=== PATIENT | male | born 1950 ===

== ENCOUNTER 2018-06-07 13:05 | Day surgery (SDC) | payer MEDICARE, OTHER ==
[2018-06-06 09:54] VITALS: BMI 26.9
[2018-06-07 13:46] LABS: BASO # 0.05 K/mm3 (0.0-2.0); BASO % 0.6 % (0.0-3.0); EOS # 0.5 (0.0-0.7); EOS % 5.2 % (1.5-5.0); GRAN # 5.83 (1.4-6.5); GRAN % 65.8 % (50.0-68.0); HEMOGLOBIN 14.8 g/dL (14.0-18.0); LYMPH # 1.6 (1.2-3.4); LYMPH % 17.9 % (22.0-35.0); MEAN CELL VOLUME 81.5 fl (80.0-105.0); MEAN CORPUSCULAR HEMOGLOBIN 28.2 pg (25.0-35.0); MEAN CORPUSCULAR HGB CONC 34.6 g/dl (31.0-37.0); MEAN PLATELET VOLUME 9.5 fl (7.0-11.0); MONO # 0.9 (0.1-0.6); MONO % 10.5 % (1.0-6.0); RBC 5.25 10^6/uL (3.5-6.1); WHITE BLOOD COUNT 8.9 10^3/ul (4.5-11.0)
[2018-06-07 13:52] LABS: BLOOD UREA NITROGEN 13 mg/dL (7-21); CALCIUM 9.9 mg/dL (8.4-10.5); GFR NON-AFRICAN AMERICAN > 60
[2018-06-07 13:56] LABS: INR 0.97; PARTIAL THROMBOPLASTIN TIME 28.7 Seconds (25.1-36.5)
[2018-06-07 14:33] VITALS: RESP 18
[2018-06-07] MEDS ORDERED: Midazolam 2 MG/2 ML VIAL ONE (15:36)
[2018-06-07] MEDS ORDERED: Lidocaine Hydrochloride 1% 10 ML ONE (15:37)
[2018-06-07] MEDS ORDERED: Oxycodone/Acetaminophen 5/325 mg Tab PO PRN (16:52)
[2018-06-07 17:00] VITALS: O2SAT 99
[2018-06-07] MEDS ORDERED: Sodium Chloride 0.45% 1,000 ML IV SCH (17:00)
[2018-06-07] MEDS ORDERED: Midazolam 2 MG/2 ML VIAL IVP ONE (17:04)
[2018-06-07 18:32] VITALS: BP 120/65; PULSE 62; TEMP 98
--- NOTE | 2018-06-07 20:48 | CT ---
PROCEDURE: CT-guided gastrostomy tube placement. HISTORY: Head neck carcinoma. Needs gastrostomy tube. Unable place endoscopic gastrostomy tube. PHYSICIAN(S): Aashish Leslie MD. TECHNIQUE: The relative risks and indications for the procedure were explained to the patient and informed consent obtained. In a sitting position, an oral gastric tube was placed and the stomach insufflated with air. The patient was placed in a supine position on the CT scanner and preliminary images through the upper abdomen performed. This revealed a distended stomach and a subxiphoid approach. Conscious sedation monitoring were provided throughout the procedure by a nurse. Under ultrasound guidance the stomach was punctured with an 18 gauge needle. A 0 point 035 guidewire was placed. Sequential dilatation was performed with subsequent placement of 14 Tong[place] pigtail gastrostomy tube. The catheter was flushed and secured. The patient tolerated the procedure well. IMPRESSION: 1. CT-guided gastrostomy tube placement as described above. 2. The tube should be changed and upsized in 4-6 weeks.
== END 2018-06-07 18:30 | disposition home or self-care (01) ==
LOC: SDSVAS 13:05
PROVIDERS: ATTEND Radiology Vascular & Interventional Radiology
DX: Z46.59 Encounter for fitting and adjustment of other gastrointestinal appliance and device (principal); C76.0 Malignant neoplasm of head, face and neck
CPT/HCPCS: 36415; 49440; 75989; 80048; 85025; 85610; 85730; 99152; 99153; J2250; J2405; J3010; J7030

== ENCOUNTER 2018-07-09 09:15 | Day surgery (SDC) | payer MEDICARE, OTHER ==
[2018-07-09 10:13] LABS: BASO # 0.03 K/mm3 (0.0-2.0); BASO % 0.5 % (0.0-3.0); EOS # 0.1 (0.0-0.7); EOS % 1.6 % (1.5-5.0); GRAN # 4.99 (1.4-6.5); GRAN % 80.7 % (50.0-68.0); HEMOGLOBIN 14.1 g/dL (14.0-18.0); LYMPH # 0.7 (1.2-3.4); LYMPH % 10.7 % (22.0-35.0); MEAN CELL VOLUME 82.7 fl (80.0-105.0); MEAN CORPUSCULAR HEMOGLOBIN 27.7 pg (25.0-35.0); MEAN CORPUSCULAR HGB CONC 33.5 g/dl (31.0-37.0); MEAN PLATELET VOLUME 9.3 fl (7.0-11.0); MONO # 0.4 (0.1-0.6); MONO % 6.5 % (1.0-6.0); RBC 5.09 10^6/uL (3.5-6.1); WHITE BLOOD COUNT 6.2 10^3/ul (4.5-11.0)
[2018-07-09 10:25] LABS: BLOOD UREA NITROGEN 21 mg/dL (7-21); GFR NON-AFRICAN AMERICAN > 60
[2018-07-09 10:27] LABS: INR 1.03; PARTIAL THROMBOPLASTIN TIME 31.5 Seconds (25.1-36.5); PROTHROMBIN TIME 11.8 SECONDS (9.4-12.5)
[2018-07-09 11:48] VITALS: BMI 26.3
[2018-07-09] MEDS ORDERED: Iodixanol 320 MG/ML 100 ML BOTTLE IV ONE (12:14)
[2018-07-09] MEDS ORDERED: Lidocaine PF 2% (5 ml) Inj (For Cardiac Arrhy) ONE (12:14)
[2018-07-09] MEDS ORDERED: Oxycodone/Acetaminophen 5/325 mg Tab PO PRN (12:56)
[2018-07-09] MEDS ORDERED: Sodium Chloride 0.45% 1,000 ML IV SCH (13:00)
[2018-07-09 14:10] VITALS: BP 94/44; PULSE 54; RESP 18; TEMP 98.2; O2SAT 98
--- NOTE | 2018-07-09 17:08 | VASCULAR ---
PROCEDURE: 1. Fluoroscopic gastrostomy tube change HISTORY: Nasopharyngeal carcinoma. Radiation therapy with a soft diet is. Needs G-tube changed PHYSICIAN(S): Aashish Leslie MD. TECHNIQUE: The relative risks and indications of the procedure were explained the patient consent obtained. The patient placed supine on the arteriogram table and the gastrostomy tube prepped and draped usual sterile fashion. Conscious sedation monitoring were provided throughout the procedure by a nurse 1 percent xylocaine was used to anesthetize the skin soft tissues around the tube. Contrast was injected which opacified the stomach. 0.035 Amplatz wire was placed in the stomach. The old tube was removed. A tapered 24 Swiss peel-away sheath was placed. Through the sheath and over a guidewire a new 18 Swiss feeding tube was placed in the stomach. The balloon was inflated with 8 cc dilute contrast and retracted against the anterior abdominal wall. Position was confirmed with injection of contrast. The patient tolerated the procedure well. FINDINGS: IMPRESSION: 1.Fluoroscopic percutaneous gastrostomy tube change. A new 18 Swiss feeding tube was placed
== END 2018-07-09 16:00 | disposition home or self-care (01) ==
LOC: OR 09:15 → SDSVAS 09:15
PROVIDERS: ATTEND Radiology Vascular & Interventional Radiology
DX: C11.9 Malignant neoplasm of nasopharynx, unspecified (principal); M51.26 Other intervertebral disc displacement, lumbar region; E78.5 Hyperlipidemia, unspecified
CPT/HCPCS: 36415; 49450; 80048; 85025; 85610; 85730; 99152; C1769; J1644; J2405; J3010; J7030; J7120; Q9967

== ENCOUNTER 2018-10-28 05:15 | Outpatient (CLI) | payer MEDICARE, OTHER | END 2018-10-28 05:16 | disposition home or self-care (01) | LOC: PET-BROA 05:15 | DX: C32.1 Malignant neoplasm of supraglottis (principal) ==

== ENCOUNTER 2019-02-20 05:41 | Outpatient (CLI) | payer OTHER | END 2019-02-20 05:42 | disposition home or self-care (01) | LOC: PET-BROA 05:41 ==